=== PATIENT | female | born 1980 | race Caucasian/White ===

== ENCOUNTER → 2020-04-11 | Outpatient (CLI) | payer OTHER ==
[~2020-04-11] MED LIST: ASPI-630 PO; CETI10TA74 PO; GADOTERATE 7.5 MMOL/15ML VIAL. IVP ONE; LEVO50TA PO; SPIR50TA4 PO
--- NOTE | 2020-04-11 15:17 | KCIC ---
EXAM: Brain MRI with and without contrast. HISTORY: Pulsatile tinnitus TECHNIQUE: Multiplanar, multisequence magnetic resonance imaging of the brain and internal auditory c anals was performed prior to and following the administration of intravenous contrast. COMPARISON: None. FINDINGS: There is no restricted diffusion to suggest acute or subacute infarction. There is no susce ptibility effect to suggest hemorrhage. There is no mass effect or midline shift. There is no hydroce phalus. There is no suspicious white matter lesion. The orbits are unremarkable. There is paranasal sinus mucosal thickening. There is decreased right ma xillary sinus size due to hypoplasia or the sequela of chronic sinusitis. There is minimal right mastoid fluid. There are normal flow voids within the cerebral vessels. There is a small retention cyst within the posterior nasopharynx. The internal auditory canals and cerebellopontine angles are unremarkable. The vestibulocochlear and facial nerves and trigeminal nerve complexes are unremarkable. Suspicious enhancing lesion is seen. IMPRESSION: No acute intracranial finding or MRI finding to correspond with reported pulsatile tinnit us. Electronically signed by: Naa Jose MD (04/11/2020 3:14 PM) [facility]
== END ==
LOC: KCIC MRI 13:10
PROVIDERS: ATTEND Physician Assistant
DX: H93.A1 Pulsatile tinnitus, right ear (principal); J34.89 Other specified disorders of nose and nasal sinuses; J34.1 Cyst and mucocele of nose and nasal sinus
CPT/HCPCS: 70553; A9575